=== PATIENT | female | born 1950 | race Caucasian/White ===

== ENCOUNTER 2023-01-25 08:57 | Day surgery (SDC) | payer MEDICARE, OTHER ==
[~2023-01-25] VITALS: Ht 152.4 cm; Wt 62.0 kg
[~2023-01-25 08:57] MED LIST: LEVSOD100 PO; VITAMIN D
--- NOTE | 2023-01-25 09:44 | NUR ---
01/25/23 0944 Vasu Anne CALL LIGHT WITHIN REACH. TETRACAINE IN AT RIGHT EYE AND PLEDGETT
--- NOTE | 2023-01-25 11:22 | NUR ---
01/25/[address] SPOKE WITH PT AND HER ABOUT FLOATERS, PT WAS CONCERNED ABOUT. DR. SEARS INFORMED ME THAT THE PATIENT WAS OKAY TO GO HOME. WALKED PT AND OUT TO CAR, DRIVEN BY SON.
== END 2023-01-25 11:15 | disposition home or self-care (01) ==
LOC: ORSCSDS 08:57
PROVIDERS: Student in an Organized Health Care Education/Training Program
PROC: 08DJ3ZZ Extraction of Right Lens, Percutaneous Approach (ICD-10-PCS; principal; 2023-01-25 10:30)
DX: H25.13 Age-related nuclear cataract, bilateral (principal); E07.9 Disorder of thyroid, unspecified; Z79.899 Other long term (current) drug therapy
CPT/HCPCS: J2001; J2250; J3010; J7040; V2632

== ENCOUNTER 2023-02-08 08:59 | Day surgery (SDC) | payer MEDICARE, OTHER ==
[~2023-02-08] VITALS: Ht 152.4 cm; Wt 62.3 kg
[2023-02-08] MEDS ORDERED: LISI10 PO (09:51)
--- NOTE | 2023-02-08 10:04 | NUR ---
02/08/23 [id number] Vasu Anne CALL LIGHT WITHIN REACH. TETRACAINE IN LEFT EYE AT 0951 AND PLEDGETT IN AT 0952.
[2023-02-08 11:22] VITALS: BP 154/89
--- NOTE | 2023-02-08 11:37 | NUR ---
02/08/23 1137 HALLIE EVERETT, [facility] IN ROOM AND PROVIDING PATIENT CARE.
== END 2023-02-08 11:35 | disposition home or self-care (01) ==
LOC: ORSCSDS 08:59
PROVIDERS: Student in an Organized Health Care Education/Training Program
PROC: 08DK3ZZ Extraction of Left Lens, Percutaneous Approach (ICD-10-PCS; principal; 2023-02-08 10:30)
DX: H25.12 Age-related nuclear cataract, left eye (principal); Z96.1 Presence of intraocular lens; I10 Essential (primary) hypertension; Z79.899 Other long term (current) drug therapy
CPT/HCPCS: J2001; J2250; J3010; J7040; V2632

== ENCOUNTER 2024-06-19 08:44 | Emergency (ER) | payer MEDICARE, OTHER ==
[~2024-06-19] VITALS: Ht 152.4 cm; Wt 56.7 kg
[~2024-06-19 08:44] MED LIST changes: +LISI10 PO
[2024-06-19] MEDS ORDERED: Ondansetron HCl 2 MG / ML 2ML Vial IV ONE (09:15)
[2024-06-19] MEDS ORDERED: HYDROmorphone HCl/Pf 1MG SYR IV ONE (09:15)
[2024-06-19] MEDS ORDERED: NS 1,000 ML IV SCH (10:15)
[2024-06-19] MEDS ORDERED: propofoL 100 ML IV SCH (10:15)
[2024-06-19] MEDS ORDERED: Norco 5-325 Ta1 EACH PO (11:12)
[2024-06-19 13:08] VITALS: BP 153/99
== END 2024-06-19 13:10 | disposition home or self-care (01) ==
LOC: ER 08:44
DX: S73.035A Other anterior dislocation of left hip, initial encounter (principal); X50.1XXA Overexertion from prolonged static or awkward postures, initial encounter; Z79.899 Other long term (current) drug therapy; Z88.5 Allergy status to narcotic agent
CPT/HCPCS: 27265; 72170; 73502; 73552; 96374-59; 96375-59; 99152; 99283-25; J1170; J2405; J2704; J7030